=== PATIENT | female | born 1960 | race Caucasian/White ===

== ENCOUNTER → 2017-01-03 | Outpatient (CLI) | payer MEDICARE ==
--- NOTE | 2017-01-03 12:31 | US ---
Pt has bilateral leg pain and non-healing wounds bilateral lower legs x many years LOWER EXTREMITY VENOUS INSUFFICIENCY SIDE PERFORMED: Bilateral 1) Color flow is present and patency is documented in the following vessels. No DVT or SVT is noted . EIV Common Femoral Vein Deep Femoral Vein Femoral Vein Popliteal Vein Proximal Calf Veins Greater Saph Vein Upper Small Saph Vein 2) There is venous reflux noted at the following venous levels: Right pop veins and right small saph veins Left pop veins and left small saph veins Probable Holt's Cyst right pop fossa= 4.8 x 1.0 x 3.4 cm IMPRESSION: 1. Probable 4.8 cm Ohlt's cyst. 2. Venous reflux as noted above.
--- NOTE | 2017-01-11 14:24 | P.ARTDOP ---
Arterial Doppler LOWER EXTREMITY ARTERIAL DOPPLER: DATE OF SERVICE: 01/03/2017 Reason for study: Chronic bilateral leg ulcers. Doppler waveforms: Multiphasic bilaterally throughout. Pulse volume recording: Normal configuration. Pressure gradients: None. Ankle-brachial indices: Not done secondary to ulcerations Toe pressures: 126 on the right, 91 on the left Impression: Suspect normal arterial study. Some blunting of the digital waveform on the left which may be vasospastic phenomenon. Cannot rule out mild distal disease but perfusion appears adequate for healing..
== END ==
LOC: RADUSWWP 10:38
PROVIDERS: ATTEND Internal Medicine Infectious Disease
DX: I87.2 Venous insufficiency (chronic) (peripheral) (principal)
CPT/HCPCS: 93923; 93970

== ENCOUNTER → 2019-06-18 | Outpatient (CLI) | payer MEDICARE ==
--- NOTE | 2019-06-18 10:40 | US ---
LOWER EXTREMITY VENOUS INSUFFICIENCY CLINICAL HISTORY: L97.902 NON PRESSURE CHRONIC ULCER. SIDE PERFORMED: Bilateral 1) Color flow is present and patency is documented in the following vessels. No DVT or SVT is noted . EIV Common Femoral Vein Deep Femoral Vein Femoral Vein Popliteal Vein Proximal Calf Veins Greater Saph Vein Upper Small Saph Vein 2) There is venous reflux noted at the following venous levels: RT: CFV, POP, Small Saph. LT Small saph, POP. IMPRESSION: 1. No sonographic evidence of deep venous thrombosis nor superficial venous thrombosis of the bilater al visualized lower extremities. 2. Venous reflux noted in the right common femoral vein, popliteal vein, small saphenous vein and lef t small saphenous vein as well as popliteal vein.
--- NOTE | 2019-06-19 14:02 | P.ARTDOP ---
Arterial Doppler LOWER EXTREMITY ARTERIAL DOPPLER: DATE OF SERVICE: 06/18/2019 Reason for study: Bilateral leg ulcers. Doppler waveforms: Multiphasic bilaterally throughout. Pulse volume recording: []. Pressure gradients: None. Ankle-brachial indices: Greater than 1 bilaterally. Toe brachial indices: 0.9 to on the right, 0.88 on the left Impression: Normal study.
== END | disposition home or self-care (01) ==
LOC: RADUSWWP 08:50
PROVIDERS: ATTEND Internal Medicine
DX: I87.2 Venous insufficiency (chronic) (peripheral) (principal); I87.313 Chronic venous hypertension (idiopathic) with ulcer of bilateral lower extremity; E11.622 Type 2 diabetes mellitus with other skin ulcer; E66.01 Morbid (severe) obesity due to excess calories; L97.902 Non-pressure chronic ulcer of unspecified part of unspecified lower leg with fat layer exposed; Z88.8 Allergy status to other drugs, medicaments and biological substances
CPT/HCPCS: 93922; 93970